=== PATIENT | female | born 1980 | race Caucasian/White ===

== ENCOUNTER 2016-11-04 19:01 | Emergency (ER) | payer MEDICAID ==
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
== END 2016-11-04 21:25 | disposition home or self-care (01) ==
LOC: ER 19:01
DX: S00.83XA Contusion of other part of head, initial encounter (principal); S30.1XXA Contusion of abdominal wall, initial encounter; S20.211A Contusion of right front wall of thorax, initial encounter; S40.021A Contusion of right upper arm, initial encounter; S60.511A Abrasion of right hand, initial encounter; S30.810A Abrasion of lower back and pelvis, initial encounter; R51 Headache; Y04.0XXA Assault by unarmed brawl or fight, initial encounter; Y92.009 Unspecified place in unspecified non-institutional (private) residence as the place of occurrence of the external cause
CPT/HCPCS: 70450; 99283